=== PATIENT | male | born 1970 | race Hispanic/Latino ===

== ENCOUNTER → 2019-09-26 | Outpatient (CLI) | payer BC ==
--- NOTE | 2019-09-26 16:11 | Diagnostic Imaging Report ---
EXAM: CHEST 2 VIEWS DATE: 09/26/2019 3:03 PM INDICATION: Cough, fever, chest pain COMPARISON: None FINDINGS: The trachea is midline. There are mildly increased left greater than right-sided basilar opacities suggestive of atelectasis. There is no evidence for large focal consolidation, pneumothorax, or significant pleural effusion. The cardiomediastinal silhouette and pulmonary vasculature are within normal limits. No acute osseous abnormality is identified. IMPRESSION: No acute cardiopulmonary process identified. Signed by: Dr. Gaurang Maher MD on 09/26/2019 4:09 PM
== END ==
LOC: RAD 14:52
PROVIDERS: ATTEND Family Medicine
DX: J18.9 Pneumonia, unspecified organism (principal)
CPT/HCPCS: 71046